=== PATIENT | male | born 1980 | race Caucasian/White ===

== ENCOUNTER 2016-11-08 11:52 | Emergency (ER) | payer OTHER ==
[~2016-11-08] VITALS: Ht 177.8 cm; Wt 63.8 kg
[~2016-11-08 11:52] MED LIST: ATIVAN2 MG PO; CLONAZEPAM0.5 M1 PO; DILANTIN100 MG PO; KEPPRA500 MG PO; LEXAPRO20 MG PO; MOTRIN600 MG PO; NAPROSYN500 MG PO; ROXICODONE5 MG PO
[2016-11-08] MEDS ORDERED: OXYCODONE HCL5 MG PO (19:01)
[2016-11-08 20:00] VITALS: BP 129/72
== END 2016-11-08 20:01 | disposition home or self-care (01) ==
LOC: EME 11:52 → RME 11:52
DX: J93.83 Other pneumothorax (principal); S20.222A Contusion of left back wall of thorax, initial encounter; F17.200 Nicotine dependence, unspecified, uncomplicated; W21.11XA Struck by baseball bat, initial encounter; Z88.6 Allergy status to analgesic agent
CPT/HCPCS: 71020; 72100; 94640; 99281; 99283

== ENCOUNTER 2018-01-22 14:17 | Emergency (ER) | payer OTHER ==
[~2018-01-22] VITALS: Ht 177.8 cm; Wt 79.2 kg
[~2018-01-22 14:17] MED LIST changes: +OXYCODONE HCL5 MG PO
[2018-01-22 15:20] LABS: BASOPHIL (%) 0.3 % (0-1); EOSINOPHIL COUNT 0.1 K/uL (0-0.3); HEMATOCRIT 42.9 % (38.0-50.0); HEMOGLOBIN 14.5 G/DL (12.5-16.6); IMMATURE GRANULOCYTE (%) 0.8 % (0.0-0.7); LYMPHOCYTE (%) 13.3 % (15-42); LYMPHOCYTE COUNT 1.6 K/uL (1.0-2.8); MCH 28.5 PG (29.0-34.0); MCHC 33.8 G/DL (30.0-36.0); MCV 84.3 FL (86-99); MONOCYTE (%) 6.5 % (3-12); MONOCYTE COUNT 0.8 K/uL (0-0.8); NEUTROPHIL (%) 78.1 % (45-76); NEUTROPHIL COUNT 9.1 K/uL (1.8-6.4); PLATELET COUNT 335 K/uL (156-360); RBC DIS.WIDTH-CV 14.2 % (11.8-14.6); RBC DIS.WIDTH-SD 43.5 % (39-53); RED BLOOD COUNT 5.09 M/uL (4.00-5.50); WHITE BLOOD COUNT 11.6 K/uL (4.1-10.2)
[2018-01-22 15:30] LABS: CHLORIDE 101 mEq/L (99-109); POTASSIUM 4.1 mEq/L (3.7-5.4); SODIUM 138 mEq/L (136-147)
[2018-01-22 15:32] LABS: GLUCOSE 102 mg/dL (70-99)
[2018-01-22 15:36] LABS: CREATININE 0.9 mg/dL (0.6-1.3); GFR ESTIMATE (CALCULATED) > 59 mL/min/ (58.99-99999)
[2018-01-22 15:37] LABS: UREA NITROGEN (BUN) 10 mg/dL (9-23)
[2018-01-22] MEDS ORDERED: KEFLEX500 MG PO (17:09)
[2018-01-22 17:18] VITALS: BP 130/71
== END 2018-01-22 17:19 | disposition home or self-care (01) ==
LOC: EME 14:17
PROVIDERS: Physician Assistant
DX: L03.115 Cellulitis of right lower limb (principal); R22.43 Localized swelling, mass and lump, lower limb, bilateral; Z59.0 Homelessness; F32.9 Major depressive disorder, single episode, unspecified; F41.9 Anxiety disorder, unspecified; Z88.6 Allergy status to analgesic agent; F17.200 Nicotine dependence, unspecified, uncomplicated
CPT/HCPCS: 73630; 80048; 85025; 99281; 99284